=== PATIENT | male | born 1995 | race Caucasian/White ===

== ENCOUNTER 2017-04-18 12:58 | Emergency (ER) | payer OTHER ==
[~2017-04-18] VITALS: Ht 180.3 cm; Wt 111.1 kg
[2017-04-18 12:58] VITALS: BP 135/85
== END 2017-04-18 15:31 | disposition home or self-care (01) ==
LOC: ER 12:59
DX: S90.31XA Contusion of right foot, initial encounter (principal); W10.9XXA Fall (on) (from) unspecified stairs and steps, initial encounter; W11.XXXA Fall on and from ladder, initial encounter; Y92.89 Other specified places as the place of occurrence of the external cause; Y93.89 Activity, other specified; Y99.8 Other external cause status
CPT/HCPCS: 73630; 73650; 99284; A4606; Z7610

== ENCOUNTER 2017-08-23 14:13 | Emergency (ER) | payer MEDICAID ==
[~2017-08-23] VITALS: Ht 177.8 cm; Wt 104.3 kg
[2017-08-23 14:28] VITALS: BP 146/82
[2017-08-23] MEDS ORDERED: TDAP [DIPH/PERTUSSIS/TET] 0.5 ML VIAL IM ONE ×2 (15:30→15:31)
== END 2017-08-23 15:35 | disposition home or self-care (01) ==
LOC: ER 14:16
DX: L02.31 Cutaneous abscess of buttock (principal)
CPT/HCPCS: 90471; 90715; 99283; A4606; Z7610

== ENCOUNTER 2019-09-15 23:20 | Emergency (ER) | payer BC, MEDICAID ==
[~2019-09-15] VITALS: Ht 180.3 cm; Wt 117.9 kg
[2019-09-15 23:20] VITALS: BP 135/77
== END 2019-09-15 23:54 | disposition home or self-care (01) ==
LOC: ER 23:24
DX: J06.9 Acute upper respiratory infection, unspecified (principal)

== ENCOUNTER 2020-02-13 22:52 | Emergency (ER) | payer MEDICAID ==
[~2020-02-13] VITALS: Ht 180.3 cm; Wt 111.1 kg
--- NOTE | 2020-02-13 23:07 | NUR ---
PT CAME TO THE ED C/O RUPPERQUADRANT ABD PAIN. +N/V-D. PT AAOX4, VSS, RESPIRATIONS EVEN AND UNLABORED ON RA W/ NAD NOTED. PT CONNECTED TO THE MONITOR AND POX.
[2020-02-13] MEDS ORDERED: MORPHINE SULFATE INJ 4 MG/ML DISP.SYRIN ONE (23:18)
[2020-02-13] MEDS ORDERED: ONDANSETRON HCL/PF 4 MG/2 ML VIAL ONE (23:18)
[2020-02-13] MEDS ORDERED: MORPHINE SULFATE INJ 2 MG/ML DISP.SYRIN IV ONE (23:30)
[2020-02-13] MEDS ORDERED: IV NS 0.9% 1,000 ML BAG IV ONE (23:30)
[2020-02-13] MEDS ORDERED: ONDANSETRON HCL/PF 4 MG/2 ML VIAL IVP ONE (23:30)
[2020-02-13 23:35] LABS: HEMOGLOBIN 15.3 g/dL (13.5-17.5); NEUTROPHILS # (AUTO) 17.9 /CMM (1.8-8.9); WHITE BLOOD COUNT (AUTO) 19.6 K/uL (4.3-11.0)
--- NOTE | 2020-02-13 23:35 | NUR ---
BLOOD COLLECTED AND SENT TO LAB
[2020-02-13 23:37] LABS: BASOPHILS # (AUTO) 0.1 /CMM (0.0-0.2); BASOPHILS % (AUTO) 0.3 % (0.0-2.0); HEMATOCRIT 46 % (39-51); LYMPHOCYTES # (AUTO) 0.9 /CMM (0.8-4.8); LYMPHOCYTES % (AUTO) 4.7 % (20.0-44.0); MEAN CORPUSCULAR HGB CONC 33 g/dl (31.0-36.0); MEAN CORPUSCULAR VOLUME 80 fL (80-96); MONOCYTES # (AUTO) 0.7 /CMM (0.1-1.30); MONOCYTES % (AUTO) 3.7 % (2.0-12.0); NEUTROPHILS % (AUTO) 91.3 % (43.0-81.0); PLATELET COUNT (AUTO) 296 /CMM (150-450); RED BLOOD CELL COUNT(AUTO) 5.72 MIL/uL (4.5-6.0)
[2020-02-13 23:42] LABS: CALCIUM, SERUM 9.7 mg/dL (8.5-10.1); POTASSIUM 3.7 mmol/L (3.5-5.1)
[2020-02-13 23:47] LABS: ALBUMIN 4.9 g/dL (3.4-5.0); BILIRUBIN,DIRECT 0.1 mg/dL (0.0-0.2); BILIRUBIN,TOTAL 0.7 mg/dL (0.2-1.0); TOTAL PROTEIN, SERUM 8.7 g/dL (6.4-8.2)
[2020-02-14] MEDS ORDERED: METRONIDAZOLE 500MG/ NS 100ML 100 ML IV ONE (01:26)
[2020-02-14] MEDS ORDERED: CIPROFLOXACIN IV RTU 200 ML IV ONE (01:27)
[2020-02-14] MEDS ORDERED: CIPROFLOXACIN IV RTU 400 MG in PREMIX 1 EA IV SCH (01:30)
[2020-02-14] MEDS ORDERED: FLAGYL/NS RTU 500 MG/100 ML PIGGYBACK IV ONE (01:30)
--- NOTE | 2020-02-14 01:31 | NUR ---
WALLP[employer]ER HANGER AT BEDSIDE FOR BC DRAW
--- NOTE | 2020-02-14 02:22 | NUR ---
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 DR. SGUGS TO CALL BACK FOR MD TO
--- NOTE | 2020-02-14 02:47 | NUR ---
DR. ROSE SPEAKING WITH DR. SUGGS Addendum: 02/14/20 at 0307 by MONTEZ PT ACCEPTED TO [facility], PENDING TRANSFER INFORMATION
--- NOTE | 2020-02-14 03:27 | NUR ---
PER [facility] [employer] MANAGER ([phone]) STILL WAITING ON BED AT [facility]
[2020-02-14] MEDS ORDERED: HYDROMORPHONE INJ 0.5 MG/0.5 ML SYRINGE IV ONE (03:30)
[2020-02-14] MEDS ORDERED: HYDROMORPHONE 1 MG/1 ML DISP.SYRIN ONE (03:34)
[2020-02-14] MEDS ORDERED: MORPHINE SULFATE INJ 4 MG/ML DISP.SYRIN ONE (03:41)
--- NOTE | 2020-02-14 03:46 | NUR ---
[facility] ORDER CANCELLED ON THE PT. WASTED 0.5 MG. WITNESSESD BY JUSTINO LYNNE RN
--- NOTE | 2020-02-14 03:58 | NUR ---
TRANSFER INFO: [facility] [phone] SUGGS
[2020-02-14] MEDS ORDERED: MORPHINE SULFATE INJ 2 MG/ML DISP.SYRIN IV ONE (04:00)
--- NOTE | 2020-02-14 04:02 | NUR ---
REPORT GIVEN TO TUSHAR KEITH
--- NOTE | 2020-02-14 04:13 | NUR ---
SPOKE WITH PT'S MOTHER ALEXANDRA AND INFORMED OF TRANSFER PER PT'S REQUEST
[2020-02-14 04:33] VITALS: BP 149/75
--- NOTE | 2020-02-14 05:00 | NUR ---
REPORT GIVEN TO EMS, PT STABLE FOR TRANSFER
--- NOTE | 2020-02-14 05:00 | NUR ---
REPORT GIVEN TO [facility] [address] FOR TRANSPORTATION J[facility]
== END 2020-02-14 05:03 | disposition short-term general hospital (02) ==
LOC: ER 22:56
DX: K81.9 Cholecystitis, unspecified (principal); R11.2 Nausea with vomiting, unspecified
CPT/HCPCS: 36415; 76705; 80048; 80076; 83690; 85025; 87040; 96361; 96365; 96367; 96375; 96376; 99285; A4216; J0744 ×2; J1170; J2270 ×2; J2405; J7030

== ENCOUNTER 2021-01-14 16:03 | Emergency (ER) | payer BC, MEDICAID ==
[~2021-01-14] VITALS: Ht 175.3 cm; Wt 79.4 kg
[2021-01-14] MEDS: IV NS 0.9% 1,000 ML BAG IV ONE (16:37)
[2021-01-14] MEDS ORDERED: ONDANSETRON HCL/PF 4 MG/2 ML VIAL ONE (16:38)
[2021-01-14] MEDS ORDERED: FAMOTIDINE/PF INJ 20 MG/2 ML VIAL IV ONE (16:39)
--- NOTE | 2021-01-14 16:39 | NUR ---
BIBS WITH FROM HOME TO ER BED 16. AAOX4. NOT IN RESP DISTRESS. AMBULATORY. CAME IN FOR EPIGASTRIC PAIN STARTED YESTERDAY. PAIN IS RATE 4/10 NON RADIATING FEELING FOR TIGHTNESS INTERMITENT IN NATURE. PT PLACED ON MONITOR. MD WAS AT THE BEDSIDE FOR EVAL.
[2021-01-14 16:40] LABS: BASOPHILS % (AUTO) 0.6 % (0.0-2.0); EOSINOPHILS % (AUTO) 1.5 % (0.0-6.0); HEMATOCRIT 43 % (39-51); HEMOGLOBIN 14.2 g/dL (13.5-17.5); LYMPHOCYTES # (AUTO) 1.9 /CMM (0.8-4.8); LYMPHOCYTES % (AUTO) 40.4 % (20.0-44.0); MEAN CORPUSCULAR HGB CONC 34 g/dl (31.0-36.0); MEAN CORPUSCULAR VOLUME 93 fL (80-96); MONOCYTES # (AUTO) 0.3 /CMM (0.1-1.30); MONOCYTES % (AUTO) 7.1 % (2.0-12.0); NEUTROPHILS # (AUTO) 2.4 /CMM (1.8-8.9); NEUTROPHILS % (AUTO) 50.4 % (43.0-81.0); PLATELET COUNT (AUTO) 192 /CMM (150-450); RED BLOOD CELL COUNT(AUTO) 4.57 MIL/uL (4.5-6.0); WHITE BLOOD COUNT (AUTO) 4.7 K/uL (4.3-11.0)
[2021-01-14] MEDS: FAMOTIDINE/PF INJ 20 MG/2 ML VIAL IV ONE (16:42)
[2021-01-14] MEDS: ONDANSETRON HCL/PF 4 MG/2 ML VIAL IVP ONE (16:43)
[2021-01-14 16:52] LABS: ALANINE AMINOTRANSFERASE 29 U/L (12-78); ALBUMIN 4.2 g/dL (3.4-5.0); ALKALINE PHOSPHATASE 65 U/L (46-116); ASPARTATE AMINOTRANSFERASE 23 U/L (15-37); BILIRUBIN,DIRECT 0.1 mg/dL (0.0-0.2); BILIRUBIN,TOTAL 0.5 mg/dL (0.2-1.0); CALCIUM, SERUM 9.1 mg/dL (8.5-10.1); CARBON DIOXIDE 28 mmol/L (21-32); CHLORIDE 103 mmol/L (98-107); CREATININE 1.2 mg/dL (0.6-1.3); GLUCOSE 82 mg/dL (74-106); LIPASE 142 U/L (73-393); POTASSIUM 3.9 mmol/L (3.5-5.1); SODIUM SERUM 140 mmol/L (136-145); TOTAL PROTEIN, SERUM 7.6 g/dL (6.4-8.2); UREA NITROGEN, BLOOD 20 mg/dL (7-18)
[2021-01-14] MEDS ORDERED: ONDA4TAB5 PO (17:35)
[2021-01-14] MEDS ORDERED: HYDR-3972 PO (17:35)
--- NOTE | 2021-01-14 17:48 | NUR ---
Patient discharged to home in stable condition. Written and verbal after care instructions given. Patient verbalizes understanding of instruction.IV removed. Catheter intact and site benign. Pressure and 4x4 applied to site. No bleeding noted. Pt ambulatory with a steady gait
[2021-01-14 18:41] VITALS: BP 132/78
[2021-01-14 19:31] LABS: BILIRUBIN,URINE NEGATIVE (NEGATIVE); COLOR,URINE YELLOW (YELLOW); LEUKOCYTE ESTERASE ,URINE NEGATIVE (NEGATIVE); NITRITE, URINE NEGATIVE (NEGATIVE); PH,URINE 5.5 (5.0-8.0); PROTEIN,URINE NEGATIVE (NEGATIVE); UGLUCOSE NEGATIVE (NEGATIVE); UROBILINOGEN,URINE 0.2 EU/dL (0.2)
== END 2021-01-14 17:48 | disposition home or self-care (01) ==
LOC: EDUNIT# 16:03 → ER 16:03
DX: K85.90 Acute pancreatitis without necrosis or infection, unspecified (principal)
CPT/HCPCS: 36415; 71045; 74176; 80048; 80076; 81003; 83690; 84484; 85025; 93005; 96361; 96374; 96375; 99285; J2405; J3490; J7030

== ENCOUNTER 2021-03-28 23:09 | Emergency (ER) | payer BC, OTHER ==
[~2021-03-28] VITALS: Ht 180.3 cm; Wt 113.4 kg
[2021-03-28 23:10] VITALS: BP 154/98
[2021-03-29] MEDS ORDERED: CLIN300C12 PO (00:18)
== END 2021-03-29 00:26 | disposition home or self-care (01) ==
LOC: ER 23:19
DX: L03.115 Cellulitis of right lower limb (principal)